=== PATIENT | male | born 1965 | race Caucasian/White ===

== ENCOUNTER → 2016-09-16 | Day surgery (SDC) | payer MEDICARE, OTHER ==
[~2016-09-16] MED LIST: FURO1TAB93 PO; LACTATED RINGER'S 1000 ML INJ 1,000 ML ONE; LIPI20TA PO; LISI-357 PO; METF500 PO; PROPOFOL 500 MG/50 ML BTL IV ONE; RANI150 PO; ROBA750T3 PO; TRUSMIS52; ZITH250T PO; [UNRECOGNIZED DRUG - OTHER] TOP; diabetic shoes
== END | disposition home or self-care (01) ==
LOC: ESDC 12:15
PROVIDERS: ATTEND Internal Medicine Gastroenterology
DX: R19.7 Diarrhea, unspecified (principal); D12.3 Benign neoplasm of transverse colon; D12.4 Benign neoplasm of descending colon
CPT/HCPCS: 00740; 00810; 43239; 45380; 88305; J3010; J7120

== ENCOUNTER 2017-07-03 19:55 | Emergency (ER) | payer MEDICARE, OTHER ==
[~2017-07-03] VITALS: Ht 180.3 cm; Wt 130.0 kg
[~2017-07-03 19:55] MED LIST changes: -LACTATED RINGER'S 1000 ML INJ 1,000 ML ONE; -PROPOFOL 500 MG/50 ML BTL IV ONE
[2017-07-03 20:05] VITALS: BP_SYST 161; BP_SYST 169; BP_DIAS 85; BP_DIAS 97; PULSE 79; RESP 15; TEMP 99.6; O2SAT 96
[2017-07-03] MEDS ORDERED: ZANT150T2 PO (20:13)
[2017-07-03] MEDS ORDERED: ZIPR20 PO (20:13)
[2017-07-03] MEDS ORDERED: METF500T PO (20:13)
[2017-07-03] MEDS ORDERED: DIVA250ER PO (20:13)
--- NOTE | 2017-07-03 20:51 | RADRPT ---
EXAM DATE/TIME: 07/03/2017 20:20 [place] COMPARISON: No previous studies available for comparison. INDICATIONS : Pain due to fall. MEDICAL HISTORY : Diabetes mellitus type II. Traumatic brain injury, seizures. SURGICAL HISTORY : Lobectomy. ENCOUNTER: Initial ACUITY: 1 day PAIN SCORE: 10/10 LOCATION: Left upper extremity elbow FINDINGS: Four views of the left elbow demonstrate no fracture or dislocation. No joint effusion is visualized. No soft tissue abnormality or radiopaque foreign body is identified. CONCLUSION: No acute abnormality is identified. Harpreet Brewer MD on July 03, 2017 at 20:49 Board Certified Radiologist. This report was verified electronically.
--- NOTE | 2017-07-03 21:08 | PD ---
HPI Chief Complaint: Fall Time Seen by Provider: 20:07 Travel History International Travel<30 days: No Contact w/Intl Traveler<30days: No Traveled to known affect area: No History of Present Illness HPI This is a 52-year-old male who presents to the emergency department who presents to the emergency department having had a mechanical fall. He landed on his left elbow. He has moderate severity pain in his left elbow, constant, worse with movement, improved with rest. He did not hit his head and denies any other injuries. PFSH Past Medical History Arthritis: Yes Asthma: Yes Anxiety: Yes Depression: Yes Cancer: No Cardiovascular Problems: Yes (HTN) COPD: Yes Cerebrovascular Accident: Yes Diabetes: Yes Patient Takes Glucophage: Yes Diminished Hearing: No Endocrine: No Gastrointestinal Disorders: Yes Genitourinary: Yes Hypertension: Yes Immune Disorder: No Kidney Stones: Yes Musculoskeletal: Yes Neurologic: Yes Psychiatric: Yes Respiratory: Yes (COPD) Pneumonia: Yes Seizures: Yes Ulcer: Yes Past Surgical History Abdominal Surgery: Yes Cardiac Surgery: No Ear Surgery: No Endocrine Surgery: No Eye Surgery: No Genitourinary Surgery: No Gynecologic Surgery: No Neurologic Surgery: Yes ("FLUID OFF THE BRAIN" PT STATES THAT HE WAS IN [place] FOR ONE YEAR) Oral Surgery: No Thoracic Surgery: Yes (CHEST TUBES) Other Surgery: Yes (RIGHT LOWER LOBECTOMY) Social History Alcohol Use: Yes Tobacco Use: Yes Substance Use: No Allergies-Medications (Allergen,Severity, Reaction): Coded Allergies: penicillin G (Unverified Allergy, Mild, rash, 07/03/17) Reported Meds & Prescriptions Reported Meds & Active Scripts Active [diabetic shoes] Diabetic shoes with inserts Reported Geodon (Ziprasidone) 20 Mg Cap 20 Mg PO BID Zantac (Ranitidine HCl) 150 Mg Tab 150 Mg PO BID Depakote ER (Divalproex Sodium) 250 Mg Tera 250 Mg PO DAILY Metformin (Metformin HCl) 500 Mg Tab 500 Mg PO BIDPC Review of Systems Except as stated in HPI: all other systems reviewed are Neg Physical Exam Narrative GENERAL:Well appearing, no acute distress SKIN: Focused skin assessment warm and dry. HEAD: Atraumatic. Normocephalic. EYES: Pupils equal and round. No injection or drainage. ENT: Moist mucous membranes NECK: Trachea midline. No cervical spine tenderness. CARDIOVASCULAR: Regular rate and rhythm. No murmur appreciated. 2+ left radial pulse with normal capillary refill. RESPIRATORY: Clear to auscultation. Breath sounds equal bilaterally. GASTROINTESTINAL: Abdomen soft, non-tender, nondistended. MUSCULOSKELETAL: Tender focally over the medial epicondyle of the left elbow with some mild pain with range of motion, mild swelling NEUROLOGICAL: Awake and alert. No obvious cranial nerve deficits. Moving all extremities. PSYCHIATRIC: Appropriate mood and affect; insight and judgment normal. Data Data Last Documented VS Vital Signs Date Time Temp Pulse Resp B/P (MAP) Pulse Ox O2 Delivery O2 Flow Rate FiO2 07/03/17 20:09 77 16 99 Room Air 07/03/17 20:05 99.6 161/85 (110) Orders Orders Elbow, Complete (4 Vws) (07/03/17 ) [facility] Medical Decision Making Medical Screen Exam Complete: Yes Emergency Medical Condition: Yes Interpretation(s) Afebrile, no tachycardia, hypertensive Last 24 hours Impressions Elbow X-Ray 07/03/17 0000 Signed Impressions: Service Date/Time: Wednesday, July 03, 2017 20:20 - CONCLUSION: No acute abnormality is identified. Harpreet Brewer MD Differential Diagnosis Elbow contusion, distal humerus fracture, radius fracture Narrative Course This is a 52-year-old male who presents to the emergency department with pain in his left elbow. He has a benign neurovascular exam. X-rays negative for acute fracture. I suspect he has a contusion. Patient was discharged home. Diagnosis Primary Impression: Elbow contusion Qualified Codes: S50.02XA - Contusion of left elbow, initial encounter Patient Instructions: General Instructions Additional Instructions: If you develop numbness, weakness or severe pain return to the emergency room. Fabien wrap your elbow, ice it, rest and elevate it for comfort. Med/Other Pt SpecificInfo: No Change to Meds Disposition: 01 DISCHARGE HOME Condition: Stable Lynn Cates MD Jul 03, 2017 21:08
== END 2017-07-03 22:05 | disposition home or self-care (01) ==
LOC: NEPC 19:55
DX: S50.02XA Contusion of left elbow, initial encounter (principal); W19.XXXA Unspecified fall, initial encounter; M19.90 Unspecified osteoarthritis, unspecified site; J44.9 Chronic obstructive pulmonary disease, unspecified; I10 Essential (primary) hypertension; Z86.73 Personal history of transient ischemic attack (TIA), and cerebral infarction without residual deficits; E11.9 Type 2 diabetes mellitus without complications; Z72.0 Tobacco use
CPT/HCPCS: 73080; 99283